=== PATIENT | female | born 1950 | race Caucasian/White ===

== ENCOUNTER → 2018-02-08 | Day surgery (SDC) | payer OTHER ==
[~2018-02-08] VITALS: Ht 167.6 cm; Wt 63.5 kg
--- NOTE | ~2018-02-08 | O ---
[place], [place] OPERATIVE NOTE NAME: LETTY RODRIGUES UNIT #: [id number] ROOM: DOCTOR: JUSTIN CORTES MD BIRTHDATE: [birth year] DOS: 02/08/2018 HISTORY OF PRESENT ILLNESS: This is a 67-year-old patient with a chief complaint of concern about colonic screening, undergone investigation. ALLERGIES: BENADRYL AND NEOSPORIN. FAMILY HISTORY: Noncontributory. 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 PAST MEDICAL HISTORY: Unremarkable. SOCIAL HISTORY: Nonsmoker. Social alcohol consumer. PROCEDURE: Today's procedure part of investigation is colonoscopy. PREMEDICATION: Propofol. SCOPE: Olympus forward-viewing folding colonoscope 10L video. REPORT: After putting the patient in left lateral position and application of lubricant to the scope, the scope was introduced. Thereafter, under direct visualization, I advanced through the length of colon without difficulty. Redundancy of colon and tortuosity of colon was appreciated. Base of cecum explored. Photographic series obtained. Ileocecal valve was defined. Air was suctioned out gradually. The patient extubated, tolerated the procedure well. IMPRESSION: Tortuous colon. PLAN AND DISCUSSION: High fiber diet. ACTIVITY: Ad manuel. FOLLOWUP: Routinely with you in office, p.r.n. visit with us in [facility]. I thank you very much again for your kind referral. [place], [place] OPERATIVE NOTE NAME: LETTY RODRIGUES UNIT #: [id number] ROOM: DOCTOR: JUSTIN CORTES MD BIRTHDATE: [birth year] JUSTIN CORTES MD CM:OPRECORD:OPERATIVE NOTE [id number] JUSTIN CORTES MD 02/08/18 1257 interface
[2018-02-08 09:00] VITALS: BP 131/60
[2018-02-08 10:42] VITALS: BP 119/70
[2018-02-08 10:57] VITALS: BP 101/55
[2018-02-08 11:12] VITALS: BP 164/92
== END | disposition home or self-care (01) ==
LOC: SDC 02-03 11:00
DX: Z12.11 Encounter for screening for malignant neoplasm of colon (principal); K56.2 Volvulus; Q43.8 Other specified congenital malformations of intestine; Z88.1 Allergy status to other antibiotic agents; Z88.8 Allergy status to other drugs, medicaments and biological substances; Z98.890 Other specified postprocedural states; Z87.891 Personal history of nicotine dependence; Z96.612 Presence of left artificial shoulder joint; Z80.9 Family history of malignant neoplasm, unspecified
CPT/HCPCS: 00812; G0121

== ENCOUNTER → 2018-09-25 | Outpatient (CLI) | payer OTHER | END | disposition home or self-care (01) | LOC: RAD 09:49 | DX: M54.2 Cervicalgia (principal); M81.0 Age-related osteoporosis without current pathological fracture; R51 Headache ==

== ENCOUNTER 2025-01-23 13:02 | Emergency (ER) | payer OTHER ==
[~2025-01-23] VITALS: Ht 165.1 cm; Wt 64.4 kg
[2025-01-23 14:44] LABS: BASO # 0.0 10*3/uL (0.0-0.1); BASO % 0.3 % (0.0-1.0); EOS # 0.1 10*3/uL (0.0-0.4); EOS % 1.1 % (1.0-4.0); MEAN CELL VOLUME 95.4 fl (81.0-99.0); MEAN CORPUSCULAR HGB 31.2 pg (27.0-31.0); MEAN PLATELET VOLUME 9.2 fl (9.6-12.3); MONO # 0.6 10*3/uL (0.1-1.0); MONO % 7.7 % (3.0-9.0); NEUT # 5.3 10*3/uL (2.3-7.9); NEUT % 73.5 % (47.0-73.0); NUCLEATED RED BLOOD CELL 0.0 % (0.0-0.0); NUCLEATED RED BLOOD CELL 0.0 10*3/uL (0.0-0.0); PLATELET COUNT AUTOMATED 356 10*3/uL (130-400); RED CELL DISTRI WIDTH 13.5 % (0-14.5)
[2025-01-23 15:15] LABS: BUN 13 mg/dl (9-23)
[2025-01-23] MEDS ORDERED: ZESTRIL5 MG PO (16:00)
== END 2025-01-23 16:07 | disposition home or self-care (01) ==
LOC: ED 13:02
PROVIDERS: Emergency Medicine
DX: R03.0 Elevated blood-pressure reading, without diagnosis of hypertension (principal); Z88.1 Allergy status to other antibiotic agents; Z88.8 Allergy status to other drugs, medicaments and biological substances; Z96.612 Presence of left artificial shoulder joint